=== PATIENT | female | born 1955 | race Caucasian/White ===

== ENCOUNTER → 2020-09-15 06:47 | Outpatient (CLI) | payer MEDICARE, OTHER, SELFPAY ==
[2020-09-16 00:17] LABS: SARS-CoV-2 RNA PCR Positive
== END ==
PROVIDERS: PCP Family Medicine; Visit Provider Physician Assistant
DX: U07.1 COVID-19 (principal)
CPT/HCPCS: C9803; U0003; U0005

== ENCOUNTER 2021-04-01 22:44 | Emergency (ER) | payer MEDICARE, OTHER, SELFPAY ==
[2021-04-01 22:46] VITALS: BP 159/112; PULSE 87; RESP 16; TEMP 36.3; O2SAT 97
--- NOTE | 2021-04-01 22:54 | ECG_ITS ---
Measurements Intervals [place] Rate: 78 P: 29 IN: 166 QRS: -1 QRSD: 88 T: 5 QT: 389 QTc: 443 Interpretive Statements SINUS RHYTHM LOW QRS VOLTAGE IN PRECORDIAL LEADS BORDERLINE T WAVE ABNORMALITY- ANTEROLAT/INF LEADS BASELINE ARTIFACT- II, III, AVR, AVL, AVF, V2 BORDERLINE ECG Electronically Signed On 04-02-2021 6:50:23 CDT by Amilcar Rodriguez D.O.
[2021-04-01 23:39] LABS: Basophils Absolute Auto 0.1 K/mm3 (0.0-0.1); Basophils Percent Auto 0.5 % (0.2-1.2); Eosinophils Absolute Auto 0.1 K/mm3 (0-0.3); Eosinophils Percent Auto 0.7 % (0-4.4); Hematocrit 47.6 % (37.0-47.0); Hemoglobin 15.1 g/dL (12.0-15.0); Immature Granulocyte Absolute 0.05 K/mm3 (0.00-0.031); Immature Granulocyte Percent A 0.3 % (0-0.5); Lymphocytes Absolute Auto 2.72 K/mm3 (0.9-3.2); Lymphocytes Percent Auto 17.9 % (18.3-44.2); Mean Corpuscular HGB Conc 31.7 g/dl (32-36); Mean Corpuscular Volume 88.3 fl (80-100); Mean Platelet Volume 9.6 fl (7.4-10.4); Monocytes Absolute Auto 1.1 K/mm3 (0.1-0.6); Monocytes Percent Auto 6.9 % (2.6-8.5); Neutrophils Absolute Auto 11.2 K/mm3 (1.3-6.7); Neutrophils Percent Auto 73.7 % (45.5-73.1); Platelet Count Result 404 k/mm3 (150-375); Red Blood Count 5.39 M/mm3 (4.2-5.4); Red Cell Distribution Width 13.2 % (11.5-14.5); White Blood Count 15.2 K/mm3 (4.5-10.0)
[2021-04-01 23:49] LABS: Alanine Aminotransferase 20 U/L (4-35); Albumin Level 4.3 g/dL (3.5-5.1); Alkaline Phosphatase 73 U/L (38-126); Anion Gap 11 mmol/L (8-16); Aspartate Amino Transferase 21 U/L (14-36); Bilirubin,Total 0.7 mg/dL (0.2-1.3); Blood Urea Nitrogen 15 mg/dL (7-17); Calcium 9.2 mg/dL (8.4-10.2); Carbon Dioxide 21 mmol/L (22-30); Chloride 108 mmol/L (98-107); Estimated CRCL calculation 86 ml/min; Estimated Glomerular Filt Rate > 60; Glucose 112 mg/dL (65-110); Lipase 197 U/L (23-300); Potassium 4.1 mmol/L (3.4-5.0); Sodium 140 mmol/L (137-145)
[2021-04-02 00:03] LABS: Add Urine Microscopic? YES; Appearance Urine Cloudy (Clear); Bacteria Urine Trace /hpf; Bilirubin Urine Negative (Negative); Blood Urine 1+ (Negative); Color Urine Yellow (Yellow); Glucose Urine UA Negative (Negative); Ketones Urine Negative (Negative); Leukocyte Esterase Ur Trace LEU/UL (Negative); Mucus Urine Rare /lpf; Nitrate Urine Negative (Negative); Protein Urine 1+ mg/dL (Negative); RBC Urine 0-2 /hpf (0-2); Specific Grav Ur 1.027 (1.001-1.035); Squamous Epithelial Cell Urine Occasional /hpf (Few)
--- NOTE | 2021-04-02 00:58 | PC.NURSE ---
Pt up to the desk stating she is feeling better and will be calling her son to come pick her up. Pt states she will follow up with her physician tomorrow.
== END 2021-04-02 00:58 | disposition left against medical advice (07) ==
LOC: ANHED 04-02 01:08
PROVIDERS: Emergency Provider Emergency Medicine; PCP Family Medicine
DX: R10.11 Right upper quadrant pain (principal)
CPT/HCPCS: 36415; 80053; 81001; 81025; 83690; 85025; 87086; 87147; 87186; 93005; 99199

== ENCOUNTER 2021-04-04 11:03 | Outpatient (CLI) | payer MEDICARE, OTHER, SELFPAY ==
--- NOTE | ~2021-04-04 | XR_ITS ---
EXAMINATION: XR knee RT 3V DATE: 04/04/2021 11:55 INDICATION: Right knee joint effusion. TECHNIQUE: 3 views of right knee were obtained. COMPARISON: None. FINDINGS: Bone alignment is normal. No fracture. There is severe osteoarthritis of lateral compartmen t, moderate osteoarthritis of patellofemoral compartment, and mild osteoarthritis of medial compartme nt. There is a moderate-sized knee joint effusion. IMPRESSION: 1. Severe right knee osteoarthritis. 2. Moderate-sized right knee joint effusion. Reviewed, dictated and finalized at location A.
== END 2021-04-04 11:04 | disposition home or self-care (01) ==
PROVIDERS: PCP Family Medicine; Visit Provider Physician Assistant
DX: M25.461 Effusion, right knee (principal); M17.11 Unilateral primary osteoarthritis, right knee
CPT/HCPCS: 73562

== ENCOUNTER 2022-03-14 03:32 | Emergency (ER) | payer MEDICARE, OTHER, SELFPAY ==
[2022-03-14] VITALS (8 sets, daily range): BP systolic 117–155; BP diastolic 59–91; PULSE 71–94; RESP 16–30; TEMP 36.1; O2SAT 95–97
--- NOTE | ~2022-03-14 | XR_ITS ---
EXAMINATION: XR chest 2V DATE: 03/14/2022 04:04 INDICATION: Chest pain. TECHNIQUE: Frontal and lateral views of the chest were obtained. COMPARISON: None. FINDINGS: A calcified right lung nodule is consistent with old granulomatous disease. No pleural effu tyler or pneumothorax. The heart size is normal. Surgical clips in the right upper quadrant are likely from cholecystectomy. IMPRESSION: 1. No acute cardiopulmonary disease. Reviewed, dictated and finalized at location A.
--- NOTE | 2022-03-14 03:44 | ECG_ITS ---
Measurements Intervals [place] Rate: 86 P: 29 [place]: 187 QRS: -6 QRSD: 82 T: 17 QT: 354 QTc: 425 Interpretive Statements SINUS RHYTHM LOW QRS VOLTAGE IN PRECORDIAL LEADS MODERATE VOLTAGE CRITERIA FOR LVH, CONSIDER NORMAL VARIANT BORDERLINE ECG COMPARED TO ECG 04/01/2021 23:00:58 NO SIGNIFICANT CHANGES Electronically Signed On 03-14-2022 16:01:02 CDT by Harvey Briones M.D.
[2022-03-14] MEDS: ASPIRIN 81 MG CHEWABLE TABLET 324 MG PO (03:49)
[2022-03-14 03:53] LABS: Basophils Absolute Auto 0.1 K/mm3 (0.0-0.1); Basophils Percent Auto 0.9 % (0.2-1.2); Eosinophils Absolute Auto 0.2 K/mm3 (0-0.3); Eosinophils Percent Auto 1.4 % (0-4.4); Hematocrit 44.9 % (37.0-47.0); Hemoglobin 14.3 g/dL (12.0-15.0); Immature Granulocyte Absolute 0.05 K/mm3 (0.00-0.031); Immature Granulocyte Percent A 0.5 % (0-0.5); Lymphocytes Absolute Auto 2.48 K/mm3 (0.9-3.2); Lymphocytes Percent Auto 23.9 % (18.3-44.2); Mean Corpuscular HGB Conc 31.8 g/dl (32-36); Mean Corpuscular Hemoglobin 27.9 pg (26-34); Mean Corpuscular Volume 87.7 fl (80-100); Monocytes Percent Auto 9.4 % (2.6-8.5); Neutrophils Absolute Auto 6.6 K/mm3 (1.3-6.7); Neutrophils Percent Auto 63.9 % (45.5-73.1); Platelet Count Result 384 k/mm3 (150-375); Red Blood Count 5.12 M/mm3 (4.2-5.4); Red Cell Distribution Width 13.2 % (11.5-14.5); White Blood Count 10.4 K/mm3 (4.5-10.0)
[2022-03-14 04:05] LABS: Prothrombin Time 12.8 Seconds (11.1-14.7)
[2022-03-14 04:06] LABS: Alanine Aminotransferase 23 U/L (6-35); Albumin Level 4.2 g/dL (3.5-5.1); Alkaline Phosphatase 67 U/L (38-126); Anion Gap 11 mmol/L (8-16); Aspartate Amino Transferase 20 U/L (14-36); Bilirubin,Total 0.7 mg/dL (0.2-1.3); Blood Urea Nitrogen 15 mg/dL (7-17); Calcium 9.2 mg/dL (8.4-10.2); Carbon Dioxide 21 mmol/L (22-30); Chloride 104 mmol/L (98-107); Estimated CRCL calculation 86 ml/min; Estimated Glomerular Filt Rate > 60; Glucose 136 mg/dL (65-110); Lipase 178 U/L (23-300); Partial Thromboplastin Time 37.5 SECONDS (22.3-36.8); Potassium 3.7 mmol/L (3.4-5.0); Sodium 136 mmol/L (137-145)
[2022-03-14 04:17] LABS: Troponin I < 0.012 ng/mL (0.000-0.034)
[2022-03-14] MEDS: BELLADONNA ALK/PHENOB ELIX 10 ML, MAG HYDROX/ALUMINUM HYD/SIMETH 30 ML, LIDOCAINE HCL 2... PO (04:28)
--- NOTE | 2022-03-14 04:35 | ED.GENADULT ---
HPI - General Adult General Chief complaint: Chest Pain Stated complaint: htn, chest pain Time Seen by Provider: 03/14/22 04:04 History of Present Illness HPI narrative: Patient is a 66-year-old female who presents to the ER with acid reflux. Has been feeling burning discomfort go from her stomach up into the back of her mouth since 11 PM. No improvement with Tums. No exertional component. No fevers chills or sweats. She reports she had a salad for dinner with chicken in it. Symptoms not improving so she came for further evaluation. No history of heart disease. Related Data Home Medications Medication Instructions Recorded Confirmed meloxicam 7.5 mg tablet 7.5 mg PO DAILY 01/10/22 01/10/22 Allergies Allergy/AdvReac Type Severity Reaction Status Date / Time Penicillins Allergy Unknown hives Verified 01/10/22 15:20 Review of Systems Review of Systems: All systems reviewed & are unremarkable except as noted in HPI and below Constitutional: Constitutional: Denies chills and Denies fever(s) ENT: Denies nasal congestion and Denies sore throat Cardiovascular: Cardiovascular: Reports chest pain, Denies radiating jaw, neck or arm pain and Denies slow heart rate Respiratory: Respiratory: Denies cough, Denies dyspnea and Denies wheezing Gastrointestinal: Gastrointestinal: Reports abdominal pain, Reports heartburn, Denies diarrhea, Denies nausea and Denies vomiting Genitourinary: Genitourinary: Denies nocturia and Denies dysuria [facility] Past Medical History Medical History (Updated 03/14/22 @ 05:49 by Jose Luis Beltre MD) Arthritis Cholecystitis Essential (primary) hypertension Hyperlipidemia Morbid (severe) obesity due to excess calories Surgical History Surgical History History of total knee arthroplasty L knee, in July 2019 Hx of cholecystectomy Family History Family History Father Family history of premature coronary heart disease, Onset Age: 45 Patient's father is Social History Social History Social History: Smoking status: Never smoker Second hand tobacco smoke exposure: No Alcohol intake: current Alcohol use details: Rarely Substance use: never Substance use type: does not use Additional living arrangements comments: Pt sons and mother lives with her Additional occupation/education comments: 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 Gender identity (if verbalized by the patient): Female Sexual Orientation (if Verbalized by the Patient): Straight or Heterosexual Exam Narrative: GENERAL: Well-appearing, morbidly obese, and in no acute distress. HEAD: Normocephalic, atraumatic. EYES: PERRL and EOMI. CHEST: Clear to auscultation. No respiratory distress. HEART: Regular rate and rhythm. Normal peripheral pulses. ABDOMEN: Soft, nontender, nondistended. EXTREMITIES: Normal range of motion. No edema. SKIN: Warm, dry, no rash. NEURO: Alert and oriented x3. PSYCH: Normal mood and affect. Course Course Emergency Course: Discomfort markedly improved with GI cocktail. Troponin negative. Discharge home. Vital Signs Vital signs: Vital Signs Temperature 97.0 F L 03/14/22 03:37 Pulse Rate 90 03/14/22 03:37 Respiratory Rate 16 03/14/22 03:37 Blood Pressure 155/91 H 03/14/22 03:37 Pulse Oximetry 97 03/14/22 03:37 Oxygen Delivery Room Air 03/14/22 03:37 Temperature 97.0 F L 03/14/22 03:37 Pulse Rate 82 03/14/22 04:33 Respiratory Rate 22 H 03/14/22 04:33 Blood Pressure 137/83 03/14/22 04:33 Pulse Oximetry 95 03/14/22 04:33 Oxygen Delivery Room Air 03/14/22 03:40 Medical Decision Making Vital Signs Vital Signs: Vital Signs Temperature 97.0 F L 03/14/22 03:37 Pulse Rate 90 03/14/22 03:37 Respiratory Rate 16 03/14/22 03:37 Blood Pressure 155/91
== END 2022-03-14 06:05 | disposition home or self-care (01) ==
PROVIDERS: Emergency Provider Emergency Medicine; PCP Family Medicine
DX: K21.9 Gastro-esophageal reflux disease without esophagitis (principal); E78.5 Hyperlipidemia, unspecified; I10 Essential (primary) hypertension; M19.90 Unspecified osteoarthritis, unspecified site; E66.01 Morbid (severe) obesity due to excess calories; Z68.42 Body mass index [BMI] 45.0-49.9, adult; Z96.652 Presence of left artificial knee joint; R10.9 Unspecified abdominal pain; R94.31 Abnormal electrocardiogram [ECG] [EKG]
CPT/HCPCS: 36415; 71046; 80053; 83690; 84484; 85025; 85610; 85730; 93005; 99284; A9270

== ENCOUNTER 2022-09-09 13:03 | Outpatient (CLI) | payer MEDICARE, OTHER, SELFPAY ==
[2022-09-09 13:52] LABS: SARS-CoV-2 RNA PCR Positive
== END 2022-09-09 13:04 | disposition home or self-care (01) ==
PROVIDERS: PCP Family Medicine; Visit Provider Nurse Practitioner Gerontology
DX: U07.1 COVID-19 (principal)
CPT/HCPCS: U0003; U0005

== ENCOUNTER 2022-11-12 08:33 | Outpatient (CLI) | payer MEDICARE, OTHER, SELFPAY ==
--- NOTE | ~2022-11-12 | DEXA_ITS ---
Bone Density Report Name: GERI WHITTAKER Age: 67 Sex: Female Ethnicity: White Date of : 1955 Indication: postmenopausal; screening for osteoporosis; Referring Provider: PANCHO CHARLES Study: Bone densitometry was performed. Exam Date: November 12, 2022 Accession number: [id number] Bone Density: Region BMD T-score Z-score Classification AP Spine(L1, L2, L3) 1.083 0.6 2.5 Normal Femoral Neck (Left) 0.815 -0.3 1.3 Normal Total Hip (Left) 0.897 -0.4 1.0 Normal Femoral Neck (Right) 0.690 -1.4 0.2 Osteopenia Total Hip (Right) 0.771 -1.4 0.0 Osteopenia Total Hip Mean 0.834 -0.9 0.5 Normal World Health Organization criteria for BMD impression classify patients as: Normal (T-score at or above -1.0), Osteopenia (T-score between -1.0 and -2.5), or Osteoporosis (T-score at or below -2.5). 10-year Fracture Risk(1): Major Osteoporotic Fracture 7.8% Hip Fracture 0.8% Reported Risk Factors: [place] (), Neck BMD=0.690, BMI=46.4 (1) FRAX(R) Version 3.08. Fracture probability calculated for an untreated patient. Fracture probability may be lower if the patient has received treatment. Clinical Information Provided by Patient: Patient maximum height was 63.5 Menopause Age: 45 No regular weight bearing exercise Drinks caffeinated beverages Onset of menses at age 13 Number of children 4 Impression: The patient has low bone mass, based on the Right Total Hip T-score. The patient has an estimated ten-year risk of hip fracture of 0.8% and an estimated ten-year risk of major fracture of 7.8%, based on the WHO FRAX algorithm. Discussion: BONE DENSITY IS LOW AT ONE OR MORE SKELETAL SITES. This patient's lowest T-score is low at one or more skeletal sites. It meets the World Health Organization's (WHO) criteria for ?low bone mass? (T-score between -1.0 and -2.5). The patient's 10-year risk of fracture as calculated by FRAX is less than the threshold where pharmacological therapy is recommended by the National Osteoporosis Foundation (NOF). However, all treatment decisions require clinical judgment and consideration of individual patient factors, including patient preferences, comorbidities, previous drug use, risk factors not captured in the FRAX model (e.g., frailty, falls, vitamin D deficiency, increased bone turnover, interval significant decline in bone density) and possible under or overestimation of fracture risk by FRAX. The patient should follow a healthful lifestyle (good nutrition with adequate calcium and vitamin D, and appropriate weight-bearing exercise). Follow-Up: Consider repeating this study in 2 to 3 years to reassess this patient's status, or sooner if there is some new clinical indication. Reported by: GLYNN on 11/12/2022 9:04:00 AM.
--- NOTE | ~2022-11-12 | MM_ITS ---
EXAMINATION: MM screening ector BI w isabel HISTORY: Screening mammogram TECHNIQUE: Craniocaudal and mediolateral oblique 3-D tomosynthesis images were obtained and synthetic 2-D images were generated. CAD analysis was submitted and interpreted. COMPARISON: 06/10/2018 bilateral screening mammogram BREAST PARENCHYMAL COMPOSITION: The breasts are almost entirely fatty. FINDINGS: There is no evidence of suspicious mass, calcification, or architectural distortion to sugg est malignancy in either breast. There has been no suspicious interval change. IMPRESSION: 1. No mammographic evidence of malignancy. 2. Recommend routine screening mammography in one year. BI-RADS Category 1: Negative Reviewed, dictated and finalized at location A.
== END 2022-11-12 08:34 | disposition home or self-care (01) ==
LOC: ANHIMG 08:34
PROVIDERS: PCP Family Medicine; Visit Provider Nurse Practitioner Gerontology
DX: Z12.31 Encounter for screening mammogram for malignant neoplasm of breast (principal); Z78.0 Asymptomatic menopausal state; M85.851 Other specified disorders of bone density and structure, right thigh
CPT/HCPCS: 77063; 77067; 77080

== ENCOUNTER 2024-01-07 17:34 | Emergency (ER) | payer MEDICARE, OTHER, SELFPAY ==
--- NOTE | ~2024-01-07 | CT_ITS ---
EXAMINATION: CTA chest abdomen pelvis DATE: 01/07/2024 20:40 INDICATION: neck, chest and abdominal pain, concern dissection . TECHNIQUE: Computed tomography (CT) of the chest, abdomen, and pelvis was performed with 100 mL Omnip aque-350 intravenous contrast. Automated exposure control and iterative reconstruction technique were employed. The dose-length product was 1868.83 mGy-cm. COMPARISON: None FINDINGS: CHEST: Thoracic aorta: No significant dilation. No dissection. Bovine arch anatomy. Lung parenchyma and airways: Lungs and airways are clear. Thoracic inlet, axillae and chest wall: 2.9 cm right thyroid nodule, with additional smaller nodules bilaterally. No axillary lymphadenopathy. Mediastinum: No mass or lymphadenopathy. Although not optimized as a CTPA examination, the pulmonary arteries are well-opacified, no central, interlobar, or segmental pulmonary emboli detected. Heart and pericardium: Mild cardiomegaly. No pericardial effusion. Coronary artery calcifications: Absent. Pleura: No effusion or mass. Thoracic bones: No acute osseous finding in the chest. ABDOMEN/PELVIS: Liver: Enlarged. Possible diffuse fatty infiltration. Biliary/Gallbladder: Gallbladder is absent. No bile duct dilation. Pancreas: No mass or duct dilation. Spleen: Normal. Adrenals:3.1 cm left adrenal mass of indeterminate density (41). Subcentimeter indeterminate density right adrenal nodules also noted. Epiploic appendage in the left lower quadrant with mild stranding. Kidneys: No suspicious mass, obstructing stone, or hydronephrosis. GI tract: No small or large bowel dilation. Normal appendix. Mesentery/Peritoneum: No ascites, mass, or free air. Retroperitoneum: No mass Pelvis: Pelvic organs are within normal limits Soft Tissues: Soft tissues and body wall unremarkable. Small uncomplicated fat-containing umbilical h ernia. Abdominopelvic bones: No acute osseous finding in the abdomen/pelvis. IMPRESSION: 2.9 cm right thyroid nodule with multiple additional bilateral nodules, recommend outpatient thyroid ultrasound for further characterization. No aortic dissection or aneurysm. Hepatomegaly with possible steatosis. 3.1 cm indeterminate left adrenal mass with additional subcentimeter right adrenal nodules, recommend outpatient adrenal CT for further evaluation. Left lower quadrant epiploic appendage with mild stranding, may represent mild epiploic appendagitis, correlate for left lower quadrant pain. Reviewed, dictated and finalized at location K. IMPRESSION: 2.9 cm right thyroid nodule with multiple additional bilateral nodules, recomme nd outpatient thyroid ultrasound for further characterization. No aortic dissection or aneurysm. Hepatomegaly with possible steatosis. 3.1 cm indeterminate left adrenal mass with additional subcentimeter right adre nal nodules, recommend outpatient adrenal CT for further evaluation. Left lower quadrant epiploic appendage with mild stranding, may represent mild epiploic appendagitis, correlate for left lower quadrant pain.
--- NOTE | 2024-01-07 17:37 | ECG_ITS ---
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 Measurements Intervals [place] Rate: 72 P: 18 MT: 168 QRS: -8 QRSD: 86 T: 12 QT: 333 QTc: 365 Interpretive Statements SINUS RHYTHM LOW QRS VOLTAGE IN PRECORDIAL LEADS VOLTAGE CRITERIA FOR LVH NONSPECIFIC T-WAVE ABNORMALITY- INFERIOR LEADS BASELINE ARTIFACT- I, II, AVR, AVL, AVF, V1 BORDERLINE ECG No previous ECG available for comparison Electronically Signed On 01-07-2024 21:15:08 CDT by Amilcar Rodriguez D.O.
[2024-01-07 17:42] VITALS: BP 137/108; PULSE 79; RESP 18; TEMP 36.2; O2SAT 97
[2024-01-07 18:04] LABS: Basophils Absolute Auto 0.1 K/mm3 (0.0-0.1); Basophils Percent Auto 0.8 % (0.2-1.2); Eosinophils Absolute Auto 0.1 K/mm3 (0-0.3); Eosinophils Percent Auto 1.3 % (0-4.4); Hematocrit 49.9 % (37.0-47.0); Hemoglobin 16.2 g/dL (12.0-15.0); Immature Granulocyte Absolute 0.02 K/mm3 (0.00-0.031); Immature Granulocyte Percent A 0.2 % (0-0.5); Lymphocytes Absolute Auto 2.81 K/mm3 (0.9-3.2); Lymphocytes Percent Auto 27.2 % (18.3-44.2); Mean Corpuscular HGB Conc 32.5 g/dl (32-36); Mean Corpuscular Hemoglobin 28.1 pg (26-34); Mean Corpuscular Volume 86.5 fl (80-100); Mean Platelet Volume 9.1 fl (7.4-10.4); Monocytes Absolute Auto 0.9 K/mm3 (0.1-0.6); Monocytes Percent Auto 8.9 % (2.6-8.5); Neutrophils Absolute Auto 6.4 K/mm3 (1.3-6.7); Neutrophils Percent Auto 61.6 % (45.5-73.1); Platelet Count Result 434 k/mm3 (150-375); Red Blood Count 5.77 M/mm3 (4.2-5.4); Red Cell Distribution Width 13.1 % (11.5-14.5); White Blood Count 10.3 K/mm3 (4.5-10.0)
--- NOTE | 2024-01-07 18:06 | ED.BACK ---
HPI - Back Pain/Injury General Chief Complaint: Back Pain/Injury Stated Complaint: UPPER BACK PAIN,NECK,ARM PAIN INDIGESTION Time Seen by Provider: 01/07/24 17:36 History of Present Illness HPI Narrative: 68-year-old female presented emergency department for evaluation of back pain that radiates to her neck and epigastrium. Patient states that she was working from home when she had onset of the back pain. Patient states she was walking around when the pain worsened. Patient does complain of current neck back and epigastric pain. Pain is not worsened with movement or palpation. Patient denies any prior history of coronary artery disease. Related Data Home Medications Medication Instructions Recorded Confirmed meloxicam 7.5 mg tablet 7.5 mg PO DAILY 01/10/22 10/03/22 Allergies Allergy/AdvReac Type Severity Reaction Status Date / Time Penicillins Allergy Unknown hives Verified 10/03/22 13:55 Review of Systems Review of Systems: All systems reviewed & are unremarkable except as noted in HPI and below PMFSH Past Medical History Medical History (Updated 01/08/24 @ 00:02 by Luis Ryan) Arthritis Breast cancer screening Cholecystitis Chronic fatigue Complicated grieving E. coli UTI Effusion, right knee Essential (primary) hypertension Hyperlipidemia Hypersomnia due to medical condition Lipid screening Morbid (severe) obesity due to excess calories Post-menopausal Weight gain Surgical History Surgical History History of total knee arthroplasty L knee, in July 2019 Hx of cholecystectomy Family History Family History Father Family history of premature coronary heart disease, Onset Age: 45 Patient's father is Social History Social History Social History: Smoking status: Never smoker Second hand tobacco smoke exposure: No Alcohol intake: current Alcohol use details: Rarely Substance use: never Substance use type: does not use Living arrangements: with family Additional living arrangements comments: Pt sons and mother lives with her Occupation/Education: occupation Additional occupation/education comments: 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 Gender identity (if verbalized by the patient): Female Sexual Orientation (if Verbalized by the Patient): Straight or Heterosexual Exam Narrative: APPEARANCE: Well appearing, no pain, no distress, well-nourished. HEAD: normocephalic, atraumatic. EYES: PERRLA/EOMI, conjunctivae clear. NOSE: Normal no drainage EARS:TMS clear with good light reflex. THROAT: Pharynx clear, no exudate. NECK: Supple. No adenopathy, no masses. RESPIRATORY: Airway patent, respirations nonlabored. Clear to auscultation bilaterally, no rales, rhonchi, wheezing. CARDIOVASCULAR: Regular rate and rhythm without murmurs rubs or gallops. ABDOMINAL: epigastric tenderness to palpation MUSCULOSKELETAL: Moves all extremities. Strength/ROM intact, No edema, No calf tenderness. NEURO: Alert. Cranial nerves II through XII intact. grossly intact SKIN: Warm, dry. Normal Color Course Vital Signs Vital signs: Vital Signs Temperature 97.1 F L 01/07/24 17:42 Pulse Rate 79 01/07/24 17:42 Respiratory Rate 18 01/07/24 17:42 Blood Pressure 137/108 H 01/07/24 17:42 Pulse Oximetry 97 01/07/24 17:42 Oxygen Delivery Room Air 01/07/24 17:42 Temperature 97.1 F L 01/07/24 17:42 Pulse Rate 81 01/07/24 21:37 Respiratory Rate 20 01/07/24 21:37 Blood Pressure 146/100 H 01/07/24 21:37 Pulse Oximetry 95 01/07/24 21:37 Oxygen Delivery Room Air 01/07/24 17:42 MDM - Back Pain/Injury MDM Narrative Medical decision making narrative: 68-year-old female presenting to the emergency department for evaluation for neck chest and epigastric pain. Patient i
[2024-01-07 18:16] LABS: Prothrombin Time 13.2 Seconds (11.1-14.7)
[2024-01-07 18:17] LABS: Partial Thromboplastin Time 31.8 Seconds (22.3-36.8)
[2024-01-07 20:09] LABS: Alanine Aminotransferase 23 U/L (6-35); Albumin Level 4.6 g/dL (3.5-5.1); Alkaline Phosphatase 76 U/L (38-126); Anion Gap 9 mmol/L (4-12); Aspartate Amino Transferase 21 U/L (14-36); Bilirubin,Total 1.5 mg/dL (0.2-1.3); Blood Urea Nitrogen 10 mg/dL (7-17); Calcium 9.2 mg/dL (8.4-10.2); Carbon Dioxide 23 mmol/L (22-30); Chloride 107 mmol/L (98-107); Estimated CRCL calculation 74 ml/min; Estimated Glomerular Filt Rate > 60; Glucose 100 mg/dL (65-110); Potassium 3.9 mmol/L (3.4-5.0); Sodium 139 mmol/L (137-145)
[2024-01-07 20:21] LABS: Troponin I < 0.012 ng/mL (0.000-0.034)
[2024-01-07 20:25] LABS: Estimated CRCL calculation 74 ml/min; Estimated Glomerular Filt Rate > 60
[2024-01-07 21:01] LABS: Appearance Urine Clear (Clear); Bacteria Urine 4+ /hpf; Bilirubin Urine Negative (Negative); Blood Urine 1+ (Negative); Color Urine Yellow (Yellow); Glucose Urine UA Negative (Negative); Ketones Urine Negative (Negative); Leukocyte Esterase Ur 1+ LEU/UL (Negative); Nitrate Urine Positive (Negative); Non Pathogenic Casts 0-2; Protein Urine Negative (Negative); RBC Urine 0-2 /hpf (0-2); Squamous Epithelial Cell Urine Occasional /hpf (Few); Urobilinogen Urine 0.2 mg/dL (<2.0); WBC Urine 21-50 /hpf (0-3)
[2024-01-07 21:02] LABS: Add Urine Microscopic? YES
[2024-01-07 21:17] LABS: Troponin I < 0.012 ng/mL (0.000-0.034)
[2024-01-07] MEDS: levoFLOXacin 500 MG TABLET PO (21:22)
[2024-01-07 21:37] VITALS: BP 146/100; PULSE 81; RESP 20; O2SAT 95
== END 2024-01-07 21:42 | disposition home or self-care (01) ==
PROVIDERS: Emergency Provider Emergency Medicine; PCP Family Medicine
DX: M54.6 Pain in thoracic spine (principal); M54.2 Cervicalgia; N39.0 Urinary tract infection, site not specified; R10.13 Epigastric pain; I10 Essential (primary) hypertension; E78.5 Hyperlipidemia, unspecified; E66.01 Morbid (severe) obesity due to excess calories; Z68.42 Body mass index [BMI] 45.0-49.9, adult; M19.90 Unspecified osteoarthritis, unspecified site; Z79.899 Other long term (current) drug therapy; Z79.85 Long-term (current) use of injectable non-insulin antidiabetic drugs; Z90.49 Acquired absence of other specified parts of digestive tract; Z96.652 Presence of left artificial knee joint
CPT/HCPCS: 36415; 71275; 74174; 80053; 81001; 84484; 85025; 85610; 85730; 87077; 87086; 87088; 87186; 93005; 99284; A9270; Q9967

== ENCOUNTER 2025-05-30 10:14 | Outpatient (CLI) | payer MEDICARE, OTHER, SELFPAY ==
--- NOTE | ~2025-05-30 | CT_ITS ---
EXAMINATION: CT abdomen wo/w con DATE: 05/30/2025 11:06 INDICATION: Other specified disorders of adrenal gland TECHNIQUE: Computed tomography (CT) of the abdomen and pelvis was performed without and with 100 mL Omnipaque-350 intravenous contrast utilizing a standard adrenal mass protocol. Automated exposure control and iterative reconstruction technique were employed. The dose-length product was 2979.17 mGy-cm. COMPARISON: 01/07/2024 FINDINGS: Minimal dependent atelectasis in bilateral lower lobes. Calcified right hilar and mediastinal lymph nodes consistent with old granulomatous disease. Heart size normal. Atherosclerotic coronary artery calcific location. No pericardial or pleural effusion. Cholecystectomy clips at the gallbladder fossa. Tiny hepatic calcifications also consistent with old granulomatous disease. Spleen, pancreas and bilateral kidneys are normal. 2.7 cm left adrenal mass with early postcontrast attenuation of 34 and low-attenuation on the precontrast and delayed contrast images of -2 HU and 5 HU respectively, diagnostic of an adenoma based upon initial attenuation as well as degree of delayed contrast washout. Additional 9 mm adenoma at the right adrenal gland with similar diagnostic low- attenuation on the precontrast and delayed postcontrast imaging of -4 HU with early postcontrast attenuation of 36HU. Visualized portions of bowels including the appendix are normal. No pathologically enlarged abdominal lymphadenopathy. Moderate lower thoracic and mild lumbar spondylosis. Chronic mild anterior wedging of a few lower thoracic vertebral bodies. IMPRESSION: 1. Bilateral adrenal adenomas measuring 2.7 centered on the left and 9 mm on the right. Reviewed, dictated and finalized at location A. IMPRESSION: 1. Bilateral adrenal adenomas measuring 2.7 centered on the left and 9 mm on th e right.
--- NOTE | ~2025-05-30 | US_ITS ---
Clinical history:Nontoxic single thyroid nodule EXAM:Ultrasound thyroid TECHNIQUE:Multiple static grayscale images and color Doppler images were obtained. Comparisons:None available FINDINGS: Right thyroid lobe measures 4.7 x 2.9 x 4.0 cm and is heterogeneous. Left thyroid lobe measures 5.2 x 2.5 x 2.0 cm and is heterogeneous. Isthmus measures 0.5 cm and is heterogeneous. There is a 1.7 x 1.2 x 1.7 cm hypoechoic solid nodule in the left thyroid lobe. TR 4. A fine-needle aspiration is recommended. There is a 3.8 x 4.0 x 2.4 cm mixed solid and cystic nodule in the right thyroid lobe. TR 4. A fine-needle aspiration is recommended. There is a 0.9 x 0.4 x 1.3 cm solid hypoechoic nodule in the isthmus. TR4. IMPRESSION: 1. There is a 3.9 cm right thyroid nodule. TR 4. A fine-needle aspiration is recommended. 2. There is a 1.7 cm left thyroid nodule. TR 4. A fine-needle aspiration is recommended. 3. Thyroid gland is heterogeneous. 4. There is a 1.3 cm right thyroid nodule. A follow-up thyroid ultrasound in 6 months is recommended. Reviewed, dictated and finalized at location Q. IMPRESSION: 1. There is a 3.9 cm right thyroid nodule. TR 4. A fine-needle aspiration is re commended. 2. There is a 1.7 cm left thyroid nodule. TR 4. A fine-needle aspiration is rec ommended. 3. Thyroid gland is heterogeneous. 4. There is a 1.3 cm right thyroid nodule. A follow-up thyroid ultrasound in 6 months is recommended.
[2025-05-30 10:43] LABS: Estimated Glomerular Filt Rate > 60
--- OUTSIDE RECORDS SUMMARY | 2025-05-30 12:22 | XMS_ITS | Clinical Summary ---
Author Organization [facility] Address [address] [place] [address] Care Team Providers Care Network Solutions Architect Name Role Phone Maria E Jacob MD Primary Care Provider + Elver Zamarripa MD Unavailable Source Comments [facility],non-owned Affiliates and Associated Physician Practices is amultiple site organization consisting of ambulatory clinics and hospital sitesin [place], [place], [place] and [place]. This disclosure is being madepursuant to the Care Everywhere program and may not contain all information available regarding this patient. Last updated 18.[facility] Allergies Active Allergy Reactions Criticality Noted Date Comments Penicillins Other Medium 03/09/2018 Childhood allergy Childhood allergy Medications * Be aware that medications may not be up to date on this document. Alwaysverify current medications with the patient. meloxicam (MOBIC) 15 MG tablet Take 1 tablet by mouth once daily 90 tablet 2 9 Active rosuvastatin (CRESTOR) 5 MG tablet Take 5 mg by mouth once daily 1 Active sertraline (ZOLOFT) 50 MG tablet Take 50 mg by mouth once daily 0 Active meloxicam (Mobic) 15 MG tablet TAKE 1 TABLET BY MOUTH EVERY DAY 30 tablet 5 2 Active celecoxib (CeleBREX) 200 MG capsule Take 1 (one) capsule by mouth 2 times daily 180 capsule 3 5 Active clindamycin (Cleocin) 300 MG capsuleIndicati ons:History of knee replacement, total, left Take 2 (two) capsules by mouth 1 Hour prior to Dental Appointment 6 capsule 2 5 Active Active Problems Problem Noted Date Diagnosed Date Benign essential hypertension 09/06/2019 Primary osteoarthritis of both knees 06/10/2019 Chronic fatigue 09/20/2018 Major depressive disorder, recurrent episode, natacha damonate 05/28/2018 Encounters Date Type Department Care Team Description 04/17/2025 Travel 04/13/2025 11:15 AM CDT Ancillary Procedure [facility] Orthoped[facility] - Radiology [address] [place] [address] Krystle Rivera MD Right knee pain, unspecified chronicity 04/13/2025 11:00 AM CDT Office Visit [facility] [address] [place] [address] Krystle Rivera MD Right knee pain, unspecified chronicity (Primary Dx); History of knee replacement, total, left from Last 3 Months Family History Medical History Relation Name Comments CAD (Coronary Artery Disease) Father Relation Name Status Comments Father Social History Tobacco Use Types Packs/Day Years Used Date Smoking Tobacco: Never Smokeless Tobacco: Never Alcohol Use Standard Drinks/Week Comments Yes 0 (1 standard drink = 0.6 oz pur e alcohol) occas Comments Unknown Sex and Gender Information Value Date Recorded Sex Assigned at Not on file Legal Sex Female 6:04 AM MAINFRAME CONSULTANT Gender Identity Not on file Sexual Orientation Not on file Last Filed Vital Signs Vital Sign Reading Time Taken Comments Blood Pressure 133/83 07/20/2019 7:03 AM MAINFRAME CONSULTANT Pulse 90 07/20/2019 7:03 AM MAINFRAME CONSULTANT Temperature 36.7 C (98.1 F) 07/20/2019 7:03 AM MAINFRAME CONSULTANT Respiratory Rate 18 07/20/2019 7:03 AM MAINFRAME CONSULTANT Oxygen Saturation 100% 07/20/2019 7:03 AM MAINFRAME CONSULTANT Inhaled Oxygen Concentration - - Weight 117.9 kg (260 lb) 02/18/2021 5:13 PM CDT Height 160 cm (5' 3) 02/18/2021 5:13 PM CDT Body Mass Index 46.06 02/18/2021 5:13 PM CDT Plan of Treatment Upcoming Encounters Date Type Department Care Team (Latest Contact Info) Description 06/15/2025 10:30 AM MAINFRAME CONSULTANT Appointment [facility] [address] [place], [place] [id number] 07/26/2025 7:00 AM MAINFRAME CONSULTANT Hospital Encounter Formerly [facility] - Perioperative Surgery [id number] [place] [address] [id number] Krystle Rivera MD [address] [place] [address] Surgery General 07/26/2025 7:00 AM MAINFRAME CONSULTANT - 07/26/2025 9:14 AM MAINFRAME CONSULTANT Surgery Formerly [facility] - Perioperative Surgery [address] [place] [address] [id number] Krystle Rivera MD [address] [place] [address] ARTHROPLASTY RIGHT TOTAL KNEE 07/26/2025 7:30 AM MAINFRAME CONSULTANT Procedure visit [facility] Orthoped[facility] [address] [place], [place] [id number] Krystle Rivera MD [address] [place] [address] 08/17/2025 10:30 AM MAINFRAME CONSULTANT Office Visit [facility] [address] [place], [place] [id number] Kalyani Ortiz PA [address] [place] [address] Scheduled Procedures Name Priority Associated Diagnoses Date/Ti me ARTHROPLASTY TOTAL KNEE 07/10 7:00 AM MAINFRAME CONSULTANT Health Maintenance Due Date Last Done Comments BONE DENSITY TESTING 1955 COLON MONITORING 1955 COLONOSCOPY - COLON CA SCREENING 1955 CT COLONOGRAPHY - COLON CA SCREENING 1955 FIT - COLON CA SCREENING 1955 FLEX SIG - COLON CA SCREENING 1955 MAMMOGRAM 1955 MEDICARE AWV 12 MONTHS 1955 HEPATITIS C SCREENING 05/01/1973 DTAP/TDAP/TD VACCINES (1 - Tdap) 1974 PNEUMOCOCCAL VACCINE 50+ (1 of 2 - PCV) 1974 ZOSTER VACCINE (1 of 2) 2005 Respiratory Syncytial Virus (RSV) Vaccine Pt: or over 60 yrs (1 - Risk 60-74 years 1-dose series) 2015 DEPRESSION SCREENING 08/10/2024 COLOGUARD (AGES 45-75) - COL ON CA SCREENING 02/28/2025 02/28/2022 Colorectal Cancer Screening 02/28/2025 COVID-19 VACCINE (3 - 2024-2 6 season) 2025 09/11/2020, 08/14/2020 INFLUENZA VACCINE (#1) 2025 06/20/2009 HEPATITIS B VACCINE Aged Out No longe r eligible based on patient's age to complete this topic HIB VACCINE Aged Out No longer eligi ble based on patient's age to complete this topic HPV VACCINE Aged Out No longer eligi ble based on patient's age to complete this topic MENINGOCOCCAL (Group B) VACCINE SHARED DECISION-MAKING Aged Out No longer eligible based on patient's age to complete this topic MENINGOCOCCAL GROUPS A/C/Y/W VACCINE Aged Out No longer eligible b ased on patient's age to complete this topic Goals Goal Patient Goal Type Associated Problems Recent Progress Patient-Stated? Author Autogenerat ed Goal Care Plan Autogenerated Problem No Meghan [employer] Medical Devices Implanted Type Area Traffic Control Signaler Device Identifier Shelf Expiration Date Model / Serial / Lot Cmnt Bone Djo Srg Cblt 40gm Hvisc Strl Implanted:Qty: 1 on 07/18/2019 by Elver Zamarripa MD at [facility] Left: Knee [employer] 09/30/2020 [id number] / / [id number] Cmpnt Ptlr 28mm 1 Pg Wire Ascnt Arcm Kn Implanted:Qty: 1 on 07/18/2019 by Elver Zamarripa MD at [facility] Left: Knee Tee [employer]omet 11/08/2023 [id number] / / [id number] Tray Tib 71mm Kn Cocr I Beam Implanted:Qty: 1 on 07/18/2019 by Elver Zamarripa MD at [facility] Left: Knee Tee [employer] 06/23/2029 [id number] / / [id number] Cmpnt Fem Kn Lt Cr Cmnt Prm Vngrd Intlk Implanted:Qty: 1 on 07/18/2019 by Elver Zamarripa MD at [facility] Left: Knee Tee [employer] 04/16/2029 [id number] / / [id number] Brng [id number] Vngrd Arcm Kn Ant Stab Implanted:Qty: 1 on 07/18/2019 by Elver Zamarripa MD at [facility] Left: Knee Tee [employer] 03/29/2024 [id number] / / [id number] Procedures Procedure Name Priority Date/Time Associated Diagnosis Comments XR KNEE RIGHT 4VW OR MORE Routine 04/13/2025 11:19 AM CDT Right knee pain, unspecified chronicity from Last 3 Months Results * XR Knee Right 4Vw or More (04/13/2025 11:19 AM CDT) Narrative [facility] - 04/13/2025 11:19 AM CDT For details of this study, please see the providers note. us Krystle Rivera MD DIAGNOSTIC IMAGING ORDERABLES F inal Result [facility] from Last 3 Months Additional Health Concerns Active Problems Noted Date Diagnosed Date Autogenerated Problem 04/13/2025 Insurance MEDICARE [facility] Advance Directives * Full Code (Latest Code Status on File) Date Activated Date Inactivated Comments 07/18/2019 12:23 PM 07/20/2019 1:55 PM Care Teams Network Solutions Architect Relationship Specialty Start Date End Date Maria E Jacob MD [address] [place] [address] PCP - General Family Medicine 06/07/19 [place] [id number] [place] [address] Orthopedic Surgery 06/07/19
== END 2025-05-30 10:15 | disposition home or self-care (01) ==
PROVIDERS: PCP Family Medicine; Visit Provider Physician Assistant
DX: D35.02 Benign neoplasm of left adrenal gland (principal); D35.01 Benign neoplasm of right adrenal gland; E04.2 Nontoxic multinodular goiter
CPT/HCPCS: 74170; 76536; Q9967